=== PATIENT | male | born 1990 | race Caucasian/White ===

== ENCOUNTER 2025-06-05 22:06 | Emergency (ER) | payer MEDICAID, SELFPAY ==
[2025-06-05 22:08] VITALS: BMI 25.5
--- NOTE | 2025-06-05 22:33 | XR_ITS ---
Examination: AP chest single view Technique one AP portable upright chest single view Date and time: June 05, 2025 11:05 PM Indications: Shortness of breath today. Findings: Normal heart size. No pneumonia or pulmonary edema. Adequate bone density Impression: No pneumonia or pulmonary edema.
--- NOTE | 2025-06-05 22:33 | EKG_ITS ---
[facility] Test Date: 2025-06-05 Pat Name: CHEMO DELGADO Department: Room: - Gender: Male Urologic Nurse: : 1990 Requested By: Alonzo John Order Number: [id number] Reading MD: Alonzo John Measurements Intervals [place] Rate: 107 P: 26 UT: 150 QRS: 46 QRSD: 86 T: 28 QT: 303 QTc: 406 Interpretive Statements SINUS TACHYCARDIA ABNORMAL RHYTHM ECG Compared to ECG 03/05/2024 19:26:38 Sinus rhythm no longer present Myocardial infarct finding no longer present /store/S0/[id number]/[id number].pdf
--- NOTE | 2025-06-05 22:34 | PD.EDRME ---
Rapid Medical Screening Exam RME Arrival date/time: 06/05/25 22:06 Chief Complaint: General Adult/Misc Complain Time Seen by Provider: 06/05/25 22:26 RME Narrative: 35-year-old male patient with no past medical history, came in for evaluation regarding multiple complaints. Patient's been having dysuria for the last 2 weeks, getting worse, this time associated with chills and not feeling well. Patient also complained of cough nonproductive chest pain, since early today. Denies any vomiting denies any other complaints.
[2025-06-05 22:41] VITALS: BP 102/71; PULSE 113; RESP 19; TEMP 38.3; O2SAT 95
[2025-06-05] MEDS: ACETAMINOPHEN 500 MG TABLET 1000 MG PO (22:47)
[2025-06-05 22:53] LABS: Collection Type, Urine Clean Catch; Squamous Epithelial Cell,Urine 0 /hpf (0-5)
[2025-06-05 22:55] LABS: Lactate (Lactic Acid) 1.7 mMol/L (0.4-2.0)
[2025-06-05 23:00] LABS: Basophils # (Auto) 0.0 Thou/mm3 (0.0-0.2); Basophils % (Auto) 0 % (0-2.5); Eosinophils # (Auto) 0.1 Thou/mm3 (0.0-0.5); Eosinophils % (Auto) 1 % (0-10); Hematocrit 41.3 % (41.0-53.0); Hemoglobin 13.9 g/dL (13.5-16.0); Immature Granulocytes Auto 0.05 Thou/mm3 (0.00-0.00); Lymphocytes # (Auto) 1.6 Thou/mm3 (1.0-4.8); Lymphocytes % (Auto) 13 % (10-50); Mean Corpuscular HGB Conc 33.7 g/dl (31.0-37.0); Mean Corpuscular Hemoglobin 29.6 pg (25.0-35.0); Mean Corpuscular Volume 88 fL (80-100); Monocytes # (Auto) 0.6 Thou/mm3 (0.0-0.8); Monocytes % (Auto) 5 % (0-12); Neutrophils # (Auto) 9.7 Thou/mm3 (1.8-7.7); Neutrophils % (Auto) 80 % (37-80); Nucleated Red Blood Cell # 0.00 Thou/mm3 (0.00-0.00); Nucleated Red Blood Cell % 0 /100 WBC (0); Platelet Count 204 Thou/mm3 (140-440); RDW Standard Deviation 41.3 fL (35.1-43.9); Red Blood Count 4.69 Miln/mm3 (4.50-5.90); White Blood Count 12.1 Thou/mm3 (3.8-10.6)
[2025-06-05 23:02] LABS: Bilirubin,Urine Negative (Negative); Blood,Urine Negative (Negative); Clarity,Urine Clear (Clear/Hazy); Color,Urine Colorless (Lt Yel-Yel); Glucose, Urine Negative (Negative); Ketones,Urine Negative (Negative); Leukocyte Esterase,Urine Positive (Negative); Nitrite,Urine Negative (Negative); PH,Urine 6.0 (5.0-7.0); Protein,Urine Negative (Neg - Trace); RBC,Urine 3 /hpf (0-3); Specific Gravity,Urine 1.008 (1.001-1.035); Urobilinogen,Urine Negative mg/dL (0.0-1.0); WBC,Urine 20 /hpf (0-5)
[2025-06-05 23:06] LABS: Culture Indicated,Urine Yes
--- NOTE | 2025-06-05 23:15 | PD.EDADULT ---
ED General RME/HPI General Chief complaint: General Adult/Misc Complain Stated complaint: SHAKING, PAIN IN URINATION Time Seen by Provider: 06/05/25 22:26 Source: patient and family Arrival date/time: 06/05/25 22:06 Mode of arrival: ambulatory Limitations: no limitations RME / HPI RME / HPI narrative: 35-year-old male patient with no past medical history, came in for evaluation regarding multiple complaints. Patient's been having dysuria for the last 2 weeks, getting worse, this time associated with chills and not feeling well. Patient also complained of cough nonproductive chest pain, since early today. Denies any vomiting denies any other complaints. Dr. Navarrete?s Main ED Evaluation: 35-year-old male presents to the ED via private vehicle, accompanied by his , with chief concerns of hematuria and painful urination. Patient reports symptoms began approximately one week ago, initially characterized by dysuria, burning sensation, and intermittent urinary leakage. He attempted self-management with home remedies, including increased water intake and cranberry juice. Burning discomfort reportedly improved over several days; however, pain persisted before resolving spontaneously. Today, after consuming pizza and two beers, the patient developed sudden chills followed by a severe burning sensation in his chest described as ?my chest felt on fire.? He denies abdominal pain, flank pain, or cough. He reports no urethral discharge but notes foamy urine consistently present for the past month. He has not experienced fever at home. Past medical history is notable only for appendectomy performed at this facility in 2018. He smokes daily, denies illicit drug use, and does not report any other chronic conditions or prior genitourinary issues. Related Data Previous Rx's ?Medication ?Instructions ?Recorded hydrocodone 7.5 mg-acetaminophen 1 tab PO Q6H PRN pain #20 tabs 02/01/18 300 mg tablet ibuprofen 600 mg tablet 600 mg PO Q8H PRN fever or pain 03/05/24 #20 tabs ibuprofen 600 mg tablet 600 mg PO Q8H PRN fever or pain 03/05/24 #20 tabs doxycycline hyclate 100 mg capsule 100 mg PO BID 7 days #14 caps 06/06/25 levofloxacin 500 mg tablet 500 mg PO QDAY #7 tabs 06/06/25 Allergies Allergy/AdvReac Type Severity Reaction Status Date / Time No Known Allergies Allergy Verified 06/05/25 22:07 Review of Systems Review of Systems Systems Reviewed: All systems reviewed, normal except as documented Past Medical History Past Medical History NEUROLOGIC: Negative Seizures CARDIAC: Negative Cardiac Disorders or Congestive Heart Failure RESPIRATORY: Negative Chronic Obstructive Pulmonary Disease (COPD) or Asthma GENITOURINARY: Negative Renal Disease ENDOCRINE: Negative Diabetes Mellitus Type 1 or Diabetes Mellitus Type 2 HEMATOLOGIC: Negative Sickle Cell Disease OTHER HISTORY: Negative Blood Transfusions, Blood Transfusion Reaction or Anesthesia Reactions Social History SMOKING STATUS: Current every day smoker ED Exam Narrative Physical exam: Generally patient is alert oriented x 3 [id number], heart mildly tachycardic, lungs clear to auscultation equal bilaterally, abdomen soft bowel sounds present nondistended nontender, skin is warm pale and dry without rash, extremities show no edema, neurologic exam Rochert Coma Scale of 15 General Limitations: Present no limitations Course Quality Measures Current suspected stage: sepsis Possible source: genitourinary Blood cultures ordered: yes Antibiotic ordered: Yes Pertinent labs: 06/05/25 22:46 Lactic Acid 1.7 mMol/L (0.4-2.0) Procalcitonin 0.09 ng/ml (0.0-0.49) sepsis Orders Category Date Time Status Bedside COVID-19 Antigen Test NOW Care 06/05/25 22:33 Active Bedside Influenza A&B Antigen Test NOW Care 06/05/25 22:33 Completed EKG (ED ONLY) *Do not use* NOW Care 06/05/25 22:33 Completed EKG (ED Only) Stat Exams 06/05/25 22:33 Draft XR chest 1V Stat Exams 06/05/25 22:33 Completed Blood Culture (Lab) Stat Lab 06/05/25 22:45 Received CBC [CBC] Stat Lab 06/05/25 22:46 Completed CMP [Comprehensive Metabolic Panel] Stat Lab 06/05/25 22:46 Completed Lactate (Lactic Acid) Stat Lab 06/05/25 22:46 Completed Procalcitonin Stat Lab 06/05/25 22:46 Completed Troponin I Stat Lab 06/05/25 22:46 Completed UA, C/S IF [Urinalysis, C/S if Indicated] Stat Lab 06/05/25 22:48 Completed Urine Culture Stat Lab 06/05/25 22:48 Received Acetaminophen Tab [Tylenol ES Tab] Med 06/05/25 22:33 Discontinued 1,000 mg PO X1 ONE Ringers Lactated 1000 ml [Lactated Ringers] 1,000 ml Med 06/05/25 22:57 Discontinued IV 999 mls/hr cefTRIAXone/D5w 1gm IV premix [Rocephin/D5w 1gm IV Med 06/05/25 22:57 Discontinued premix] 1 gm in 50 ml IV X1 Vital Signs Vital signs: Vital Signs Temperature 101.0 F H 06/05/25 22:41 Pulse Rate 113 H 06/05/25 22:41 Respiratory Rate 19 06/05/25 22:41 Blood Pressure 102/71 06/05/25 22:41 Pulse Oximetry (%) 95 06/05/25 22:41 Oxygen Delivery Method Room Air 06/05/25 22:41 Discharge Plan Plan Patient Disposition: HOME (Self Care) Prescriptions/Referrals Prescriptions/Med Rec: New levofloxacin 500 mg tablet 500 mg PO QDAY Qty: 7 0RF doxycycline hyclate 100 mg capsule 100 mg PO BID 7 Days Qty: 14 0RF No Action hydrocodone-acetaminophen 7.5-300 mg tablet 1 tab PO Q6H MDD 3 PRN (Reason: pain) Qty: 20 0RF ibuprofen 600 mg tablet 600 mg PO Q8H PRN (Reason: fever or pain) Qty: 20 0RF ibuprofen 600 mg tablet 600 mg PO Q8H PRN (Reason: fever or pain) Qty: 20 0RF Referrals: No Primary/Family,Physician [Primary Care Provider] - In 1 week Problem List Clinical Impression: UTI (urinary tract infection), Fever Patient/Caregiver Discharge Instructions Education Materials: Urinary Tract Infections in Men Additional Instructions: Take both antibiotics as prescribed. Take Tylenol 650 mg every 4 hours as needed for fever and ibuprofen 800 mg every 8 hours as needed for fever. Follow-up with your doctor. Return to ER as needed or if condition worsens. Print Language: Sinhala Stand Alone Forms: Hetal Award Info., Patient Portal Info Letter MDM Narrative [facility] hospital course: Scribe Attestation: King Velez, am scribing for and in the presence of Dr. Navarrete. Provider Notation: Although this document has been carefully reviewed, there may still be some phonetic and other typographical errors. These errors are purely grammatical due to imperfections in the software program and should not be construed in any way to compromise the substance of the patient's medical care during this visit. Septic workup was initiated. Lactic acid level and procalcitonin were not elevated. Blood cultures were obtained. Patient received Rocephin 1 g IV. Urine did show 20 WBCs but no bacteria. Patient is and is sexually active only with his . He denies urethral discharge. Nonetheless the patient will be treated for GC with the Rocephin and discharged on doxycycline for possible chlamydia. Patient will also be discharged on Levaquin for possible UTI. Patient is hydrated with a liter of lactated Ringer's and is no longer tachycardic. Patient received Tylenol for fever here in the emergency room. He will be discharged on doxycycline and Levaquin to be taken as prescribed. Tylenol and ibuprofen for fever. Follow-up with his doctor. Return to ER as needed or if condition worsens. Chest x-ray is clear. COVID was negative. Flu was negative. I interpreted all labs. Clinical Information Provided by patient and spouse Medical Records Reviewed [facility] Chronic Illness/Social Conditions which may negatively complicate care or outcome(s)-explain: None or not applicable Lab Interpretation Labs: interpreted by me Imaging Imaging interpretation: interpreted by me Medication Administration(s) Medication Administration History Discontinued Medications Acetaminophen (Acetaminophen 500 Mg Tablet) 1,000 mg PO X1 ONE Stop: 06/05/25 22:34 Last Admin: 06/05/25 22:47 Dose: 1,000 mg Documented By: ZEN Ceftriaxone Sodium/Dextrose (Rocephin/D5w 1gm Iv Premix) 1 gm in 50 mls @ 100 mls/hr IV X1 ONE Stop: 06/05/25 23:26 Last Infusion: 06/05/25 23:55 Dose: Infused Documented By: Admin: 06/05/25 23:27 Dose: 100 mls/hr Documented By: CCT Lactated Ringer's (Lactated Ringers) 1,000 mls @ 999 mls/hr IV .Q1H1M ONE Stop: 06/05/25 23:57 Last Admin: 06/05/25 23:43 Dose: 999 mls/hr Documented By: CCT as above
[2025-06-05] MEDS: cefTRIAXone/D5w 1gm IV premix 1 GM/50 ML BAG IV (23:27)
[2025-06-05 23:30] LABS: Alanine Aminotransferase 35 U/L (10-49); Albumin, Serum 4.6 gm/dL (3.5-5.0); Albumin/Globulin Ratio 1.7 (1.2-2.2); Alkaline Phosphatase 83 U/L (46-116); Anion Gap 12 (7-16); Aspartate Amino Transferase 29 U/L (0-34); BUN/Creatinine Ratio 5 Ratio (12-20); Bilirubin,Total 0.3 mg/dL (0.3-1.2); Blood Urea Nitrogen < 5 mg/dL (9-23); Calcium 9.7 mg/dL (8.3-10.6); Calcium (Corrected) 9.7 mg/dL (8.5-10.1); Carbon Dioxide 23.3 mMol/L (20.0-31.0); Chloride 107 mMol/L (98-107); Creatinine (Component) 1.0 mg/dL (0.6-1.3); Estimated Creatinine Clearance 127.8 mL/min (>60); Globulin 2.7 gm/dL (2.3-3.5); Glucose 91 mg/dL (74-106); Osmolality,Calculated 280 (275-295); Potassium 3.9 mMol/L (3.4-5.1); Procalcitonin 0.09 ng/ml (0.0-0.49); Sodium 142 mMol/L (136-145); Total Protein 7.3 gm/dL (5.7-8.2); Troponin I < 0.002 ng/mL (0.0-0.045); eGFR > 60 See Note
[2025-06-05] MEDS: RINGERS LACTATED 1000 ML 1,000 ML 999 ML IV (23:43)
[2025-06-06 00:25] VITALS: BP 105/74; PULSE 90; RESP 20; TEMP 37.6; O2SAT 94
[2025-06-06 00:50] VITALS: BP 105/74; PULSE 96; RESP 17; TEMP 37.6; O2SAT 97
== END 2025-06-06 00:50 | disposition home or self-care (01) ==
PROVIDERS: Nurse Practitioner Family; Emergency Provider Emergency Medicine
DX: N39.0 Urinary tract infection, site not specified (principal); R50.9 Fever, unspecified; R07.9 Chest pain, unspecified; R05.9 Cough, unspecified
CPT/HCPCS: 36415; 71045; 80053; 81001; 83605; 84145; 84484; 85025; 87040; 87077; 87086; 87186; 87400; 87811; 93005; 96361; 96365; 99283; J0696; J7120; A9270